=== PATIENT | male | born 1980 | race Caucasian/White ===

== ENCOUNTER 2025-07-28 21:37 | Emergency (ER) | payer SELFPAY ==
[2025-07-28] MEDS: Bacitracin Oint 1 GM U/D Packet TOP ONE (22:26)
== END 2025-07-28 22:30 | disposition home or self-care (01) ==
LOC: JP.ED 21:37
DX: S61.214A Laceration without foreign body of right ring finger without damage to nail, initial encounter (principal); W26.0XXA Contact with knife, initial encounter
CPT/HCPCS: 12001; 99282